=== PATIENT | female | born 1940 | race Caucasian/White ===

== ENCOUNTER 2016-09-28 19:35 | Emergency (ER) | payer MEDICARE ==
[~2016-09-28] VITALS: Ht 170.2 cm; Wt 67.1 kg
[~2016-09-28 19:35] MED LIST: ASPRIN PO; DICL75 PO; HYDR-3533 PO
[2016-09-28 19:43] VITALS: BP 146/74; PULSE 72; RESP 14; TEMP 97.9; O2SAT 97
[2016-09-28] MEDS ORDERED: DIAZEPAM 5 MG TAB PO ONE (21:00)
--- NOTE | 2016-09-28 21:09 | RADHPO ---
EXAM DATE/TIME: 09/28/2016 20:52 [place] COMPARISON: No previous studies available for comparison. INDICATIONS : Complains of upper back pain. MEDICAL HISTORY : None. SURGICAL HISTORY : None. ENCOUNTER: Initial ACUITY: 2 days PAIN SCORE: 8/10 LOCATION: Back FINDINGS: PA and lateral views of the chest demonstrate the lungs to be symmetrically aerated without evidence of mass, infiltrate or effusion. The cardiomediastinal contours are unremarkable. Osseous structure s are intact. CONCLUSION: No acute disease. Sajan Solis MD on September 28, 2016 at 21:07 Board Certified Radiologist. This report was verified electronically.
--- NOTE | 2016-09-28 21:34 | PD ---
HPI Chief Complaint: Back/ Neck Pain or Injury Time Seen by Provider: 20:20 Travel History International Travel<30 days: No Contact w/Intl Traveler<30days: No Traveled to known affect area: No History of Present Illness HPI 76-year-old female presents to emergency department for evaluation of mid back pain. She reports that she was doing dishes in the kitchen at 1 PM this afternoon when she felt the pain in her mid back. She describes the pain as sharp and spasming in nature. She reports the episodes last for only a few seconds and then resolve. She reports the pain can be reproduced by touching the back. She denies chest pain, shortness of breath, diaphoresis, nausea or vomiting. She reports she's had multiple episodes of similar symptoms over the last 8 years. She reports the symptoms are usually resolved by lying down or taking a Motrin. Today she took a Motrin and a Tylenol 3 but the spasms persisted so she presented to the emergency department. She has a past medical history of hypertension, hyperlipidemia. [facility] Past Medical History Narrative Medical Significant for hypertension and hyperlipidemia Arthritis: Yes Blood Disorders: No Cancer: No Cardiovascular Problems: Yes High Cholesterol: Yes Diminished Hearing: No Gastrointestinal Disorders: Yes (GALLBLADDER ATTACKS) Genitourinary: No Hypertension: Yes Musculoskeletal: Yes (LEG CRAMPS) Neurologic: No Reproductive: No Respiratory: No Tetanus Vaccination: Unknown Influenza Vaccination: No ?: Not Menopausal: Yes Past Surgical History Abdominal Surgery: No Cardiac Surgery: No Ear Surgery: No Endocrine Surgery: No Eye Surgery: No Genitourinary Surgery: No Gynecologic Surgery: Yes (HYSTERECTOMY) Hysterectomy: Yes Thoracic Surgery: No Social History Alcohol Use: No Tobacco Use: No Substance Use: No Allergies-Medications (Allergen,Severity, Reaction): Coded Allergies: Codeine (Verified Allergy, Mild, Nausea/Vomiting, 09/30/14) Reported Meds & Prescriptions Reported Meds & Active Scripts Active Percocet (Oxycodone-Acetaminophen) 5-325 mg Tab 1 Tab PO Q6H PRN Lortab 5 mg/325 mg (Hydrocodone/Acetaminophen 5 mg/325 mg) 1 Tab 1 Tab PO Q6H PRN Diclofenac Sodium Dr (Diclofenac Sod) 75 Mg Tab 75 Mg PO BID PRN Reported [Asprin] 81 Mg PO DAILY Review of Systems Except as stated in HPI: all other systems reviewed are Neg Physical Exam Narrative GENERAL: Alert, well-appearing female. In no acute distress. SKIN: Focused skin assessment warm/dry. HEAD: Atraumatic. Normocephalic. EYES: Pupils equal and round. No scleral icterus. No injection or drainage. ENT: No nasal bleeding or discharge. Mucous membranes pink and moist. NECK: Trachea midline. No JVD. CARDIOVASCULAR: Regular rate and rhythm. No murmur appreciated. Equal pulses in all extremities. RESPIRATORY: No accessory muscle use. Clear to auscultation. Breath sounds equal bilaterally. GASTROINTESTINAL: Abdomen soft, non-tender, nondistended. Hepatic and splenic margins not palpable. MUSCULOSKELETAL: No obvious deformities. No clubbing. No cyanosis. No edema. BACK: Tenderness to the paraspinous muscles left of the mid thoracic spine. NEUROLOGICAL: Awake and alert. No obvious cranial nerve deficits. Motor grossly within normal limits. Normal speech. PSYCHIATRIC: Appropriate mood and affect; insight and judgment normal. Data Data Last Documented VS Vital Signs Date Time Temp Pulse Resp B/P Pulse Ox O2 Delivery O2 Flow Rate FiO2 09/28/16 19:43 97.9 72 14 146/74 97 Orders Chest, Pa & Lat (09/28/16 ) Diazepam (Valium) (09/28/16 21:00) Oxycodone-Acetamin 5-325 Mg (Percocet (09/28/16 22:00) MDM Medical Decision Making Medical Screen Exam Complete: Yes Emergency Medical Condition: Yes Medical Record Reviewed: Yes Differential Diagnosis Thoracic muscle spasm, herniated disc, compression fracture, dissection, Narrative Course This is a 76-year-old female who presents to the emergency department for left- sided mid back pain. She reports the pain began at 1 PM this afternoon while in the kitchen doing dishes. She describes the pain as spasming in nature, intermittent, sharp lasting only several seconds and then resolving. She reports she's had multiple episodes of similar pain over the last 8 years. She reports that the pain is usually resolved by Motrin or resting. The EMR was reviewed and the patient was evaluated in 2008 for similar episode and was admitted for atypical chest pain and rule out dissection. All her diagnostic tests were negative for ACS or dissection at that time. She reports she's had multiple other episodes since that time. On physical exam the pain was reproducible to palpation of the paraspinous muscles left of the thoracic spine. Attending physician Dr. Patel and myself believe this is musculoskeletal in nature and not dissection. Chest x-ray pending. Chest x-ray: No acute disease. Normal mediastinum. 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
[2016-09-28] MEDS ORDERED: PERC5TAB12 PO (21:55)
[2016-09-28] MEDS ORDERED: oxyCODONE/ACETAMINOPHEN 5 MG/325 MG TAB PO ONE (22:00)
== END 2016-09-28 22:35 | disposition home or self-care (01) ==
LOC: PHEFT 19:35
DX: M62.830 Muscle spasm of back (principal); I10 Essential (primary) hypertension; E78.5 Hyperlipidemia, unspecified; M19.90 Unspecified osteoarthritis, unspecified site; E78.00 Pure hypercholesterolemia, unspecified; Z79.899 Other long term (current) drug therapy; Z79.82 Long term (current) use of aspirin
CPT/HCPCS: 71020; 99283

== ENCOUNTER 2018-04-16 20:26 | Observation (INO) ==
--- NOTE | 2018-04-16 21:02 | ED ---
HPI General Chief Complaint: Chest Pain Stated Complaint: Left chest/breast pain Time Seen by Provider: 04/16/18 20:55 Source: patient Mode of arrival: ambulatory Limitations: no limitations History of Present Illness HPI narrative: 77-year-old female with history of hypertension and dyslipidemia presents to the emergency department for 1 day of intermittent left-sided stabbing chest pain. Patient states been present 8/10 in intensity and then resolves quickly. Patient states discomfort duration is about 20 seconds. Patient did take a one-time dose of 81 mg aspirin prior to arrival to the emergency department no relief. Patient has had EKGs and stress test in the past that she reports have been unremarkable. Patient denies any known history of coronary artery disease. Patient does have family history of CAD with father passing away at age 67 from myocardial infarction. Patient does not know if he had early onset heart disease in his 40s. Patient is a non-smoker. Patient denies diabetes. Patient also denies any recent long distance travel protracted bedrest surgical procedure. No prior history of clotting disorder but positive maternal family history of PE. No shortness of breath no sweats no nausea no vomiting no referred neck jaw back shoulder arm pain. Patient denies abdominal pain. Patient reports she has been told that she has an abnormal gallbladder and denies any history of stones but has had no fever or chills no abdominal pain no abdominal tenderness. Patient cannot associate onset of symptoms with dietary intake. Patient rates discomfort 8/10 in intensity. MD complaint: Reports chest pain STEMI Alert: No Onset (ago): hour(s) Duration: intermittent Onset: during rest Pain location: Reports left chest Severity: similar to previous episodes Severity scale (1-10): 8 Quality: Reports sharp Pain radiation: Reports back (Left subscapular) Relieving factors: nothing Exacerbating factors: nothing Context: Denies recent illness, recent surgery, recent immobilization, recent travel, trauma/injury, new medications and history of DVT/PE Associated symptoms: Denies nausea, vomiting, diaphoresis, dyspnea, sense of impending doom, syncope, palpitations, fever, cough and leg swelling Treatments prior to arrival chest pain: Reports aspirin (81 mg) Related Data On Oral Contraceptives: No Home Medications Medication Instructions Recorded Confirmed lisinopril 20 mg PO DAILY 04/16/18 04/16/18 simvastatin 20 mg PO QPM 04/16/18 04/16/18 Allergies Allergy/AdvReac Type Severity Reaction Status Date / Time codeine Allergy Mild Nausea/Vomi Verified 04/16/18 20:36 ting Review of Systems ROS: all other systems reviewed are negative PMFSH Medical History Medical History H/O: hysterectomy (Acute) High cholesterol (Acute) Hypertension (Acute) Surgical History Surgical History S/P wrist surgery (Acute) Social History Social History Substance History: No History of Abuse Smoking Status: Never smoker How Often Do You Have a Drink Containing Alcohol: Never Recent Travel in [facility] within the Last 8 Weeks: No Recent Out of Country Travel within the Last 8 Weeks: No Immunization History Tetanus Immunization: Unsure Exam Narrative Exam Narrative: GENERAL: Well-nourished, well-developed patient. SKIN: Focused skin assessment warm/dry. HEAD: Normocephalic. EYES: No scleral icterus. No injection or drainage. NECK: Supple, trachea midline. No JVD or lymphadenopathy. CARDIOVASCULAR: Regular rate and rhythm without murmurs, gallops, or rubs. RESPIRATORY: Breath sounds equal bilaterally. No accessory muscle use. GASTROINTESTINAL: Abdomen soft, non-tender, nondistended. Nontender no palpable pulsatile mass no guarding or rebound. MUSCULOSKELETAL: No cyanosis, or edema. Bilateral radial and dorsalis pedis pulses 2+ to palpation. BACK: Nontender without obvious deformity. No CVA tenderness. Nontender to direct palpation no subscapular tenderness no flank tenderness bilaterally. Course Initial Documented Vital Signs Temperature 97.8 F 04/16/18 20:39 Pulse Rate 72 04/16/18 20:39 Respiratory Rate 20 04/16/18 20:39 Blood Pressure 229/90 H 04/16/18 20:39 Pulse Oximetry 98 04/16/18 20:39 Last Documented Vital Signs Temperature 97.8 F 04/16/18 20:39 Pulse Rate 55 L 04/16/18 22:03 Respiratory Rate 16 04/16/18 22:03 Blood Pressure 135/64 04/16/18 22:03 Pulse Oximetry 99 04/16/18 22:03 Medical Decision Making MDM Narrative Medical decision making narrative: 77-year-old female with history of hypertension dyslipidemia presents with intermittent left-sided stabbing chest pain 8/10 in intensity when present for seconds does refer to the left subscapular region has had symptoms like this before his referral had negative stress test and EKGs in the past. EKG sinus rhythm rate [address] elevation injury pattern or ectopy noted Patient placed on equipment monitor phototypesetting IV access obtained specimens collected and sent for resulting bilateral upper extremity blood pressures obtained patient administered aspirin 162 mg by mouth x1 as well as sublingual nitroglycerin 0.4 mg q. 5 minutes x3 as needed for ongoing chest pain or to hold for blood pressure less than or equal to 100 mmHg Pain has diminished; patient states she is very concerned about pulmonary embolism due to family history of PE Patient does report component of pleuritic pain at this time to her discomfort therefore CT pulmonary antrum ordered At 11:[address] pulmonary angina gram shows no evidence of PE Is not time for patient's second set of cardiac enzymes. Patient will be admitted to chest pain center per protocol. Patient is agreeable to this. Medical Screen Exam Complete: Yes Emergency Medical Condition: Yes Differential Diagnosis Differential Diagnosis: Chest pain, atypical chest pain, ACS, [place], dissection, aneurysm, PE, muscular skeletal pain, esophageal spasm, atypical biliary colic Medical Records Medical records reviewed: Yes I reviewed the patient's medical records. Lab Data Lab results reviewed: Yes I reviewed the patient's lab results. Result diagrams: 04/16/18 21:00 04/16/18 21:00 Lab Results 04/16/18 04/16/18 04/16/18 Range/Units 21:00 21:00 21:00 WBC 5.9 (4.0-11.0) th/mm3 RBC 4.39 (4.00-5.30) mil/mm3 Hgb 13.4 (11.6-15.3) gm/dL Hct 39.9 (35.0-46.0) % MCV 91.0 (80.0-100.0) fL MCH 30.5 (27.0-34.0) pg MCHC 33.5 (32.0-36.0) % RDW 12.6 (11.6-17.2) % Plt Count 141 L (150-450) th/mm3 MPV 9.0 (7.0-11.0) fL Neut % (Auto) 51.4 (16.0-70.0) % Lymph % (Auto) 36.9 (9.0-44.0) % [place] % (Auto) 9.2 H (0.0-8.0) % Eos % (Auto) 1.5 (0.0-4.0) % Baso % (Auto) 1.0 (0.0-2.0) % Neut # (Auto) 3.0 (1.8-7.7) th/mm3 Lymph # (Auto) 2.2 (1.0-4.8) th/mm3 [place] # (Auto) 0.5 (0.0-0.9) th/mm3 Eos # (Auto) 0.1 (0.0-0.4) th/mm3 Baso # (Auto) 0.1 (0.0-0.2) th/mm3 WBC Differential . Differential Comment Auto diff final PT 10.1 (9.8-11.6) sec INR 1.0 Ratio APTT 25.0 (23.4-31.7) sec Sodium 145 (136-145) meq/L Potassium 3.7 (3.5-5.1) meq/L Chloride 110 H (98-107) meq/L Carbon Dioxide 28.9 (21.0-32.0) meq/L Anion Gap 6 (5-15) meq/L BUN 14 (7-18) mg/dL Creatinine 0.99 (0.50-1.00) mg/dL Estimated GFR 55 L (>89) mL/min Random Glucose 90 (74-106) mg/dL Calcium 8.0 L (8.5-10.1) mg/dL Magnesium 2.2 (1.5-2.5) mg/dL Total Bilirubin 0.4 (0.2-1.0) mg/dL AST 25 (15-37) U/L ALT 21 (10-53) U/L Alkaline Phosphatase 98 (45-117) U/L Troponin I Less than 0.02 L (0.02-0.05) ng/mL Total Protein 6.7 (6.4-8.2) g/dL Albumin 3.8 (3.4-5.0) g/dL Lipase 157 (73-393) U/L Imaging Data Radiologist's impression: Chest X-Ray 04/16/18 20:55 CONCLUSION: No acute cardiopulmonary disease. Chest CTA 04/16/18 22:22 CONCLUSION: 1. No pulmonary metastases. 2. Several pulmonary nodule seen in the left lower lobe. These are nonspecific. These are too small to further characterize with PET scan or biopsy. Follow-up in 3-6 months would be recommended. 3. 6.5 cm low-density mass of the right lobe of the liver. This could be further evaluated with a MRI with contrast using hepatic protocol. This could be performed as an outpatient. 4. 6 mm calcification at the right aryepiglottic fold region. ECG Data EKG Prior to Arrival: No Attestation: I personally reviewed and interpreted this ECG as follows: (EKG normal sinus rhythm rate [address] elevation injury pattern or ectopy normal axis and intervals are noted artifact is present at baseline) Discharge Plan Discharge Disposition Patient Disposition: ED Admit(ED Internal Use Only) Discharge Condition Condition: Stable Discharge Order Discharge Orders: ED Use Only Admit Order (Routine); Ordered 04/17/18 Ordered By: Lidia Madden Discharge Details Diagnosis: Chest pain Physicians Team ED Provider: Lidia Madden Primary Care Provider: Arturo Mccoy Rxs /Orders / Referrals /Forms Prescriptions: No Action lisinopril 20 mg Tablet 20 mg PO DAILY RF: 0 simvastatin 20 mg Tablet 20 mg PO QPM RF: 0 Discharge Instructions Patient Printed Instructions: Chest Pain (ED) Status ED Status: With Doctor
[2018-04-16 21:09] LABS: Baso # (Auto) 0.1 th/mm3 (0.0-0.2); Eos # (Auto) 0.1 th/mm3 (0.0-0.4); Eos % (Auto) 1.5 % (0.0-4.0); Hematocrit 39.9 % (35.0-46.0); Hemoglobin 13.4 gm/dL (11.6-15.3); Lymph # (Auto) 2.2 th/mm3 (1.0-4.8); Lymph % (Auto) 36.9 % (9.0-44.0); Mean Corpuscular HGB Conc 33.5 % (32.0-36.0); Mean Corpuscular Hemoglobin 30.5 pg (27.0-34.0); Mono # (Auto) 0.5 th/mm3 (0.0-0.9); Mono % (Auto) 9.2 % (0.0-8.0); Neut % (Auto) 51.4 % (16.0-70.0); Platelet Count 141 th/mm3 (150-450); Red Blood Count 4.39 mil/mm3 (4.00-5.30); Red Cell Distribution Width 12.6 % (11.6-17.2); White Blood Count 5.9 th/mm3 (4.0-11.0)
--- NOTE | 2018-04-16 21:17 | XR ---
EXAM DATE: 04/16/2018 9:14 PM EST AGE/SEX: 77 years / Female INDICATIONS: Left side chest pain since last night. CLINICAL DATA: This is the patient's initial encounter. Patient reports that signs and symptoms have been present for 2 days and indicates a pain score of 9/10. MEDICAL/SURGICAL HISTORY: Hypertension. None. COMPARISON: [facility], CHEST PA & LAT, 09/28/2016. . FINDINGS: The lungs are clear without infiltrate, nodule, or mass. There is no appreciable pleural effusion for technique. Heart and mediastinum are unremarkable. CONCLUSION: No acute cardiopulmonary disease. Electronically signed by: Rock Vázquez MD Board Certified Radiologist 04/16/2018 9:15 PM EST
[2018-04-16 21:18] LABS: Prothrombin Time 10.1 sec (9.8-11.6)
[2018-04-16 21:33] LABS: Albumin 3.8 g/dL (3.4-5.0); Anion Gap 6 meq/L (5-15); Aspartate Aminotransferase 25 U/L (15-37); Blood Urea Nitrogen 14 mg/dL (7-18); Carbon Dioxide 28.9 meq/L (21.0-32.0); Chloride 110 meq/L (98-107); Glomerular Filtration Rate 55 mL/min (>89); Glucose,Random 90 mg/dL (74-106); Lipase 157 U/L (73-393); Magnesium 2.2 mg/dL (1.5-2.5); Potassium 3.7 meq/L (3.5-5.1); Sodium 145 meq/L (136-145)
[2018-04-16 21:38] LABS: Alanine Aminotransferase 21 U/L (10-53); Alkaline Phosphatase 98 U/L (45-117); Total Protein 6.7 g/dL (6.4-8.2)
[2018-04-16] MEDS ORDERED: Ketorolac Inj 30 MG/ML (IVP) Vial IV.PUSH ONE (22:22)
--- NOTE | 2018-04-16 23:18 | CT ---
EXAM DATE: 04/16/2018 11:03 PM EST AGE/SEX: 77 years / Female INDICATIONS: Upper left chest pain; rule out pulmonary embolus. CLINICAL DATA: This is the patient's initial encounter. Patient reports that signs and symptoms have been present for 1 day and indicates a pain score of 5/10. MEDICAL/SURGICAL HISTORY: Hypertension. Hypercholesterolemia. Hysterectomy. RADIATION DOSE: 8.6 CTDI (mGy) COMPARISON: No prior exams available for comparison. TECHNIQUE: Volumetric scanning was performed using a multi-row detector CT scanner during bolus infu virgil of 70 ml Omnipaque 350 (iohexol) nonionic water-soluble contrast as a single exam dose. The kaushik a was post processed with a variety of visualization algorithms including full volume maximum intensi ty projection and sliding thin slab reformation. Using automated exposure control and adjustment of t he mA and/or kV according to patient size, radiation dose was kept as low as reasonably achievable to obtain optimal diagnostic quality images. DICOM format image data is available electronically for r eview and comparison. FINDINGS: Pulmonary Arteries: No filling defects are seen in the pulmonary arteries out to the subsegmental ve ssels. The left and right pulmonary arteries are normal in diameter. Lung: There are several pulmonary nodule seen in the left lower lobe measuring up to 6 mm. There is also a focal 0.7 cm nodular areas seen in the left lower lobe. This appears to be associated with a p ulmonary artery. This could be either a focally distended segment of the pulmonary artery or a nodule abutting the pulmonary artery. Effusion: None. Mediastinum: No evidence of mediastinal or hilar adenopathy. Other: The axilla is unremarkable. There is a 6.5 cm low-density mass seen in the right lobe of the liver. This is nonspecific. There is a mild hiatal hernia. There is a 6 mm calcification seen at the right aryepiglottic fold area. CONCLUSION: 1. No pulmonary metastases. 2. Several pulmonary nodule seen in the left lower lobe. These are nonspecific. These are too small to further characterize with PET scan or biopsy. Follow-up in 3-6 months would be recommended. 3. 6.5 cm low-density mass of the right lobe of the liver. This could be further evaluated with a MR I with contrast using hepatic protocol. This could be performed as an outpatient. 4. 6 mm calcification at the right aryepiglottic fold region. Electronically signed by: Isael Soliz MD Board Certified Radiologist 04/16/2018 11:16 PM EST
[2018-04-17] MEDS ORDERED: Morphine Sulfate Inj 2 MG/ML Vial IV.PUSH ONE (00:01)
[2018-04-17] MEDS ORDERED: Sodium Chlor 0.9% Inj 500 ML IV.SIG SCH (01:00)
[2018-04-17 01:28] LABS: Creatine Kinase 186 U/L (26-192)
[2018-04-17 04:37] LABS: Creatine Kinase 162 U/L (26-192)
[2018-04-17 08:39] VITALS: TEMP 98.2
--- NOTE | 2018-04-17 09:03 | P.HPCA ---
History of Present Illness Primary Care Physician: Arturo Mccoy MD Chief Complaint: Chest pain History of Present Illness: 77-year-old female with history of hypertension and hyperlipidemia presents the emergency room for further evaluation of nonexertional chest pain. Onset Wednesday evening 730 while watching TV. Location left anterior chest. Characterized as a sharp severe pain with radiation to left scapular area. Upon awakening Wednesday morning pain persisted described as intermittent sharp severe pains otherwise but experienced a dull ache. Discomfort wax and wane in intensity. No associated symptoms of nausea, vomiting, dyspnea, or diaphoresis. No recent illness, fever, cough, or injury. No precipitating or relieving factors. Denies similar pain in the past. Does not hurt to take a deep breath. No particular movement or position makes pain better or worse. Endorses being active plays tennis 5 times a week. Last playing prior to . Past cardiac testing No recent cardiac testing Social history Known hypertension and hyperlipidemia. No known diabetes or coronary artery disease. Former smoker quit in 1987. No alcohol or recreational drug use. . Endorses an active lifestyle. Performs cardiovascular exercise on a regular basis. - Diagnosis (1) Atypical chest pain (2) Hypertension (3) Hyperlipidemia Review of Systems All other systems reviewed negative except as stated in HPI PMFSH - History History Provided By: Patient - Medical History Medical History: Medical History (Last Reviewed 04/17/18 @ 11:29 by RUSLAN Mccurdy) H/O: hysterectomy High cholesterol Hypertension - Surgical History Surgical History: Surgical History (Last Reviewed 04/17/18 @ 11:29 by RUSLAN Mccurdy) S/P wrist surgery - Family History Family History: Family History (Last Updated 04/17/18 @ 11:30 by RUSLAN Mccurdy) Father Myocardial infarction Mother CVA (cerebral vascular accident) Sister DVT (deep venous thrombosis) - Social History I have reviewed the patient's Social History: Yes - Tobacco History Second Hand Smoke Exposure: No Tobacco Use In Past 30 Days: No Smoking Status: Former smoker - Alcohol History How Often Do You Have a Drink Containing Alcohol: Never - Substance Use History Substance History: No History of Abuse - Travel History Recent Travel in the [place] Within the Last 8 Weeks: No Recent Travel Out of the Country Within the Last 8 Weeks: No - Immunization History Tetanus Immunization: Unsure Medications and Allergies Active Medications: Active Medications Nitroglycerin (Nitrostat Sl) 0.4 mg SL Q5M PRN PRN Reason: CHEST PAIN Last Admin: 04/17/18 02:22 Dose: 0.4 mg Sodium Chloride (Ns Flush) 2 ml IV.FLUSH UNSCH PRN PRN Reason: FLUSH AFTER USING IV ACCESS Sodium Chloride (Ns Flush) 2 ml IV.FLUSH BID LEON Sodium Chloride (Ns Flush) 2 ml IV.FLUSH PRN PRN PRN Reason: FLUSH AFTER USING IV ACCESS Allergies Allergy/AdvReac Type Severity Reaction Status Date / Time codeine Allergy Mild Nausea/Vomi Verified 04/16/18 20:36 ting Home Medications Medication Instructions Recorded Confirmed Type lisinopril 20 mg PO DAILY 04/16/18 04/16/18 History simvastatin 20 mg PO QPM 04/16/18 04/16/18 History Exam Vital signs: Vital Signs 04/16/18 20:39 04/16/18 20:55 04/16/18 22:03 Temperature 97.8 F Pulse Rate 72 59 L 55 L Respiratory Rate 20 16 16 Blood Pressure 229/90 H 163/74 H 135/64 Pulse Oximetry 98 97 99 04/17/18 01:47 04/17/18 04:00 04/17/18 08:24 Temperature 97.6 F 97.8 F Pulse Rate 60 52 L Respiratory Rate 16 16 Blood Pressure 140/62 123/59 L Pulse Oximetry 95 94 L 95 04/17/18 08:37 Temperature 98.2 F Pulse Rate 49 L Respiratory Rate 20 Blood Pressure 118/56 L Pulse Oximetry 94 L Intake & Output 04/16/18 04/17/18 04/17/18 18:59 06:59 18:59 Intake Total 500 / 500 Balance 500 / 500 Weight 65.771 kg Intake: IV 500 / 500 NS Inj 500 ML @ 1000 mls/hr IV. 500 / 500 SIG BOLUS LEON Rx#:[id number] Oral 0 / 0 Other: # Voids 1 Weight On Admission 65.771 kg Narrative: GENERAL: Alert WN, WD, NAD, pleasant, elderly, female HEAD: NC, AT EYES: Sclera clear, conjunctiva without injection, pupils equal and round ENT: Mucous membranes pink and moist, upper and lower plates intact NECK: Supple, no masses, trachea midline CV: Regular bradycardic rhythm, without murmur, rub, gallop, no JVD, S1-S2 no S3 -S4. No carotid bruits. chest wall nontender to palpation. RESP: Clear lungs throughout bilateral, no crackles, wheeze, rhonchi, symmetrical chest rise, nonlabored, able to speak in full sentences ABD: Soft, NT, ND, no masses, positive bowel tones EXT: Pulses +2x4, no dependent edema MS: Normal tone x4 extremities, nontender, no obvious deformities, full range of motion NEURO: Motor strength 5/5 PSYCH: A+O x3, pleasant affect, appropriate speech, mood, insight and judgment SKIN: Normal turgor, normal texture, no lesions, no rashes Results 04/16/18 21:00 04/16/18 21:00 Cardiac Enzymes 04/16/18 04/17/18 04/17/18 Range/Units 21:00 00:20 03:20 AST 25 (15-37) U/L Troponin I Less than 0.02 L Less than 0.02 L Less than 0.02 L (0.02-0.05) ng/mL Coagulation 04/16/18 Range/Units 21:00 PT 10.1 (9.8-11.6) sec APTT 25.0 (23.4-31.7) sec CBC 04/16/18 Range/Units 21:00 WBC 5.9 (4.0-11.0) th/mm3 RBC 4.39 (4.00-5.30) mil/mm3 Hgb 13.4 (11.6-15.3) gm/dL Hct 39.9 (35.0-46.0) % Plt Count 141 L (150-450) th/mm3 Neut # (Auto) 3.0 (1.8-7.7) th/mm3 Lymph # (Auto) 2.2 (1.0-4.8) th/mm3 [place] # (Auto) 0.5 (0.0-0.9) th/mm3 Eos # (Auto) 0.1 (0.0-0.4) th/mm3 Baso # (Auto) 0.1 (0.0-0.2) th/mm3 Comprehensive Metabolic Panel 04/16/18 Range/Units 21:00 Sodium 145 (136-145) meq/L Potassium 3.7 (3.5-5.1) meq/L Chloride 110 H (98-107) meq/L Carbon Dioxide 28.9 (21.0-32.0) meq/L BUN 14 (7-18) mg/dL Creatinine 0.99 (0.50-1.00) mg/dL Calcium 8.0 L (8.5-10.1) mg/dL AST 25 (15-37) U/L ALT 21 (10-53) U/L Alkaline Phosphatase 98 (45-117) U/L Total Protein 6.7 (6.4-8.2) g/dL Albumin 3.8 (3.4-5.0) g/dL Intake and Output 04/16/18 04/17/18 04/17/18 22:59 06:59 14:59 Intake Total 500 / 500 Balance 500 / 500 Intake: IV 500 / 500 NS Inj 500 ML @ 1000 mls/hr IV. 500 / 500 SIG BOLUS LEON Rx#:[id number] Oral 0 / 0 Other: # Voids 1 Weight 65.771 kg 65.771 kg Weight On Admission 65.771 kg - Imaging and Cardiology Imaging: Impressions Chest X-Ray 04/16/18 20:55 CONCLUSION: No acute cardiopulmonary disease. Chest CTA 04/16/18 22:22 CONCLUSION: 1. No pulmonary metastases. 2. Several pulmonary nodule seen in the left lower lobe. These are nonspecific. These are too small to further characterize with PET scan or biopsy. Follow-up in 3-6 months would be recommended. 3. 6.5 cm low-density mass of the right lobe of the liver. This could be further evaluated with a MRI with contrast using hepatic protocol. This could be performed as an outpatient. 4. 6 mm calcification at the right aryepiglottic fold region. EKG interpretations - EKG EKG results cardiology: normal axis, normal QRS, normal ST/T - Dysrhythmias Sinus rhythms and dysrhythmias: sinus bradycardia (< 50 bpm) Caprini VTE Risk Assessment Caprini VTE Risk Assessment: Moderate/High Risk (score >= 2) Caprini Risk Assessment Model: Point Value = 1 Point Value = 2 Point Value = 3 Point Value = 5 Age 41-60 Minor surgery BMI > 25 kg/m2 Swollen legs Varicose veins or History of unexplained or recurrent spontaneous Oral contraceptives or hormone replacement Sepsis (< 1 month) Serious lung disease, including pneumonia (< 1 month) Abnormal pulmonary function Acute myocardial infarction Congestive heart failure (< 1 month) History of inflammatory bowel disease Medical patient at bed rest Age 61-74 Arthroscopic surgery Major open surgery (> 45 min) Laparoscopic surgery (> 45 min) Malignancy Confined to bed (> 72 hours) Immobilizing plaster cast Central venous access Age >= 75 History of VTE Family history of VTE Factor V Leiden Prothrombin [id number] Lupus anticoagulant Anticardiolipin antibodies Elevated serum homocysteine Heparin-induced thrombocytopenia Other congenital or acquired thrombophilia Stroke (< 1 month) Elective arthroplasty Hip, pelvis, or leg fracture Acute spinal cord injury (< 1 month) Prophylaxis Regimen: Total Risk Factor Score Risk Level Prophylaxis Regimen 0-1 Low Early ambulation 2 Moderate Order ONE of the following: *Sequential Compression Device (SCD) *Heparin 5000 units SQ BID 3-4 Higher Order ONE of the following medications: *Heparin 5000 units SQ TID *Enoxaparin/Lovenox 40 mg SQ daily (WT < 150 kg, CrCl > 30 mL/min) *Enoxaparin/Lovenox 30 mg SQ daily (WT < 150 kg, CrCl > 10-29 mL/min) *Enoxaparin/Lovenox 30 mg SQ BID (WT < 150 kg, CrCl > 30 mL/min) AND/OR *Sequential Compression Device (SCD) 5 or more Highest Order ONE of the following medications: *Heparin 5000 units SQ TID (Preferred with Epidurals) *Enoxaparin/Lovenox 40 mg SQ daily (WT < 150 kg, CrCl > 30 mL/min) *Enoxaparin/Lovenox 30 mg SQ daily (WT < 150 kg, CrCl > 10-29 mL/min) *Enoxaparin/Lovenox 30 mg SQ BID (WT < 150 kg, CrCl > 30 mL/min) AND *Sequential Compression Device (SCD) Assessment and Plan - Assessment (1) Atypical chest pain Code(s): R07.89 - Other chest pain Status: Acute Plan: Admit to chest pain center. ACS ruled out 3 sets of EKGs and cardiac enzymes. Monitor on telemetry overnight. Will be seen and evaluated by Dr. Carlos Eduardo Chacon. Toradol 15 mg IV x1 dose now. Discomfort suggestive of musculoskeletal chest wall pain. Discussed likely will proceed with cardiac testing due to risk factors. Patient agreeable to plan of care. Further disposition to follow after evaluation by electrophysiologist. (2) Hypertension Code(s): I10 - Essential (primary) hypertension Status: Chronic Plan: Continue lisinopril. (3) Hyperlipidemia Code(s): E78.5 - Hyperlipidemia, unspecified Status: Chronic Plan: Continue simvastatin. H&P: Quality - VTE Deep Vein Thrombosis/Pulmonary Embolism Present on Admission: No (2) Hypertension Qualifiers: Hypertension type: unspecified Qualified Code(s): I10 - Essential (primary) hypertension (3) Hyperlipidemia Qualifiers: Hyperlipidemia type: unspecified Qualified Code(s): E78.5 - Hyperlipidemia, unspecified
[2018-04-17] MEDS ORDERED: Ketorolac Inj 30 MG/ML (IVP) Vial IV.PUSH ONE (09:30)
--- NOTE | 2018-04-17 10:31 | P.PNCA ---
Subjective Interval history: This patient was seen and evaluated by the nurse practitioner subsequently presented and then seen in concert together and evaluated. She presents with atypical chest pain which is recorded in the HPI by the nurse practitioner. She is currently resting reasonably comfortably with diminished pain. She is followed by Dr. Terry, had a previous negative Lexiscan in 2008 but has had no cardiac testing since that time. Her evaluation thus far has been negative her EKG is unremarkable but her CTA does show small pulmonary nodules. The patient and family were made aware of this and the need to call it to Dr. Terry's attention for follow-up at 6 months. Medications and Allergies Active Medications: Active Medications Nitroglycerin (Nitrostat Sl) 0.4 mg SL Q5M PRN PRN Reason: CHEST PAIN Last Admin: 04/17/18 02:22 Dose: 0.4 mg Sodium Chloride (Ns Flush) 2 ml IV.FLUSH UNSCH PRN PRN Reason: FLUSH AFTER USING IV ACCESS Sodium Chloride (Ns Flush) 2 ml IV.FLUSH BID LEON Last Admin: 04/17/18 09:36 Dose: 2 ml Sodium Chloride (Ns Flush) 2 ml IV.FLUSH PRN PRN PRN Reason: FLUSH AFTER USING IV ACCESS Allergies Allergy/AdvReac Type Severity Reaction Status Date / Time codeine Allergy Mild Nausea/Vomi Verified 04/16/18 20:36 ting Home Medications Medication Instructions Recorded Confirmed Type lisinopril 20 mg PO DAILY 04/16/18 04/16/18 History simvastatin 20 mg PO QPM 04/16/18 04/16/18 History Physical Exam Vital signs: Vital Signs 04/16/18 20:39 04/16/18 20:55 04/16/18 22:03 Temperature 97.8 F Pulse Rate 72 59 L 55 L Respiratory Rate 20 16 16 Blood Pressure 229/90 H 163/74 H 135/64 Pulse Oximetry 98 97 99 04/17/18 01:47 04/17/18 04:00 04/17/18 08:24 Temperature 97.6 F 97.8 F Pulse Rate 60 52 L Respiratory Rate 16 16 Blood Pressure 140/62 123/59 L Pulse Oximetry 95 94 L 95 04/17/18 08:37 Temperature 98.2 F Pulse Rate 49 L Respiratory Rate 20 Blood Pressure 118/56 L Pulse Oximetry 94 L Intake & Output 04/16/18 04/17/18 04/17/18 18:59 06:59 18:59 Intake Total 500 / 500 Balance 500 / 500 Weight 65.771 kg Intake: IV 500 / 500 NS Inj 500 ML @ 1000 mls/hr IV. 500 / 500 SIG BOLUS LEON Rx#:[id number] Oral 0 / 0 Other: # Voids 1 Weight On Admission 65.771 kg Narrative: Well-nourished well-developed woman resting comfortably with family at bedside Head normocephalic atraumatic Eyes PERRLA EOMI sclera clear Mouth mucous membranes moist and well papillated no lesions upper and lower plates in place Neck supple no JVD masses nodes or bruits Chest clear to auscultation no rales wheezes or rhonchi and nontender Cardiovascular regular sinus rhythm with no gallop rub or murmur Abdomen soft nontender no guarding or rebound and no mass Results 04/16/18 21:00 04/16/18 21:00 Cardiac Enzymes 04/16/18 04/17/18 04/17/18 Range/Units 21:00 00:20 03:20 AST 25 (15-37) U/L Troponin I Less than 0.02 L Less than 0.02 L Less than 0.02 L (0.02-0.05) ng/mL Coagulation 04/16/18 Range/Units 21:00 PT 10.1 (9.8-11.6) sec APTT 25.0 (23.4-31.7) sec CBC 04/16/18 Range/Units 21:00 WBC 5.9 (4.0-11.0) th/mm3 RBC 4.39 (4.00-5.30) mil/mm3 Hgb 13.4 (11.6-15.3) gm/dL Hct 39.9 (35.0-46.0) % Plt Count 141 L (150-450) th/mm3 Neut # (Auto) 3.0 (1.8-7.7) th/mm3 Lymph # (Auto) 2.2 (1.0-4.8) th/mm3 [place] # (Auto) 0.5 (0.0-0.9) th/mm3 Eos # (Auto) 0.1 (0.0-0.4) th/mm3 Baso # (Auto) 0.1 (0.0-0.2) th/mm3 Comprehensive Metabolic Panel 04/16/18 Range/Units 21:00 Sodium 145 (136-145) meq/L Potassium 3.7 (3.5-5.1) meq/L Chloride 110 H (98-107) meq/L Carbon Dioxide 28.9 (21.0-32.0) meq/L BUN 14 (7-18) mg/dL Creatinine 0.99 (0.50-1.00) mg/dL Calcium 8.0 L (8.5-10.1) mg/dL AST 25 (15-37) U/L ALT 21 (10-53) U/L Alkaline Phosphatase 98 (45-117) U/L Total Protein 6.7 (6.4-8.2) g/dL Albumin 3.8 (3.4-5.0) g/dL Intake and Output 04/16/18 04/17/18 04/17/18 22:59 06:59 14:59 Intake Total 500 / 500 Balance 500 / 500 Intake: IV 500 / 500 NS Inj 500 ML @ 1000 mls/hr IV. 500 / 500 SIG BOLUS LEON Rx#:[id number] Oral 0 / 0 Other: # Voids 1 Weight 65.771 kg 65.771 kg Weight On Admission 65.771 kg - Imaging and Cardiology Imaging: Impressions Chest X-Ray 04/16/18 20:55 CONCLUSION: No acute cardiopulmonary disease. Chest CTA 04/16/18 22:22 CONCLUSION: 1. No pulmonary metastases. 2. Several pulmonary nodule seen in the left lower lobe. These are nonspecific. These are too small to further characterize with PET scan or biopsy. Follow-up in 3-6 months would be recommended. 3. 6.5 cm low-density mass of the right lobe of the liver. This could be further evaluated with a MRI with contrast using hepatic protocol. This could be performed as an outpatient. 4. 6 mm calcification at the right aryepiglottic fold region. Assessment and Plan - Plan Patient is ruled out using standard chest pain center protocol and will be further evaluated with a nuclear stress test. She is also made aware that she needs to be followed up in 6 months for the pulmonary nodules.
[2018-04-17 11:16] VITALS: BP 153/67; PULSE 58; RESP 18; O2SAT 91
--- NOTE | 2018-04-17 11:45 | ECG ---
Date Performed: 04/16/2018 Time Performed: 20:49:22 PTAGE: 77 years EKG: Sinus rhythm NORMAL ECG INTERPRETATION BASED ON A DEFAULT AGE OF 40 YEARS Since the PREVIOUS TRACING , no significant change noted PREVIOUS TRACIN09/30/2014 22.16 DOCTOR: Kenn Gaines Interpretating Date/Time 04/17/2018 11:44:01
[2018-04-17] MEDS ORDERED: Regadenoson Inj 0.4 MG/5 ML Syringe IV.PUSH ONE (11:57)
--- NOTE | 2018-04-17 13:47 | NM ---
EXAM DATE: 04/17/2018 1:43 PM EST AGE/SEX: 77 years / Female INDICATIONS:Angina. . Left chest pain. CLINICAL DATA: This is the patient's initial encounter. Patient reports that signs and symptoms have been present for 1 day and indicates a pain score of 8/10. MEDICAL/SURGICAL HISTORY: Hypercholesterolemia. Hypertension. Hysterectomy. COMPARISON: No prior exams available for comparison. DOSE: 8.5 mCi Tc 99m Myoview at rest 26.6 mCi [id number] at stress 0.4 mg Lexiscan STRESS SYMPTOMS: Chest pressure and stomach pain. EJECTION FRACTION: > 70 % TECHNIQUE: The patient underwent pharmacologic stress with infusion of prescribed dose. Continuous ECG tracing was monitored during stress. Gated SPECT imaging was performed after stress and conventi onal SPECT imaging was performed at rest. The examination was performed on a SPECT/CT scanner, both attenuation and non-corrected datasets were reviewed. FINDINGS: Distribution: The maximum perfused segment at stress is in the lateral wall. Perfusion Study: The pattern of perfusion at stress is within normal limits. Gated Study: There are intact wall motion and wall thickening without hypokinetic or dyskinetic segm ents. The ejection fraction is calculated at > 70%. RISK CATEGORY: Low (<1% Annual Motality Rate) CONCLUSION: 1. No evidence of fixed or reversible perfusion defect. Normal wall motion and ejection fraction. Electronically signed by: Hodan Ponce MD Board Certified Radiologist 04/17/2018 1:46 PM JEOVANY Presley
--- NOTE | 2018-04-17 14:50 | ECG ---
Date Performed: 04/17/2018 Time Performed: 00:16:06 PTAGE: 77 years EKG: SINUS BRADYCARDIA BORDERLINE ECG No significant change PREVIOUS TRACING : 04/16/2018 20.49 DOCTOR: Carlos Eduardo Chacon Interpretating Date/Time 04/17/2018 14:49:59
--- NOTE | 2018-04-17 14:50 | ECG ---
Date Performed: 04/17/2018 Time Performed: 04:06:28 PTAGE: 77 years EKG: SINUS BRADYCARDIA BORDERLINE ECG No change since prior tracing PREVIOUS TRACING : 04/17/2018 00.16 DOCTOR: Carlos Eduardo Chacon Interpretating Date/Time 04/17/2018 14:48:28
--- NOTE | 2018-04-17 14:53 | TR ---
Date Performed: 04/17/2018 Time Performed: 12:36:13 DOCTOR: Carlos Eduardo Chacon DRUG LIST: CLINICAL HISTORY: REASON FOR TEST: CHEST PAIN REASON FOR ENDING: OBSERVATION: CONCLUSION: Lexiscan stress test was performed under standard four minute protocol. Radionuclide was injected one minute prior to ending the test. Non specific electrocardiographic abormalities wer e present to suggest ischemia. Nuclear imaging and interpretation are pending. COMMENTS:
== END 2018-04-17 15:45 | disposition home or self-care (01) ==
LOC: NEDA 20:26 → NEPE 20:26 → NEPFCDU 04-17 01:34
PROVIDERS: ADMIT Internal Medicine Interventional Cardiology; ATTEND Internal Medicine Interventional Cardiology